=== PATIENT | male | born 1980 | race Caucasian/White ===

== ENCOUNTER 2016-07-21 09:11 | Emergency (ER) | payer SELFPAY ==
--- NOTE | 2016-07-21 09:41 | Emergency Department Record ---
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 pt states he was wearing a mask chief complaint: Eye pain, Eye redness Onset/Timin -: Days(s) Onset Description: Sudden Location: Right eye Place: Home If Injury: None Eye Symptoms: Blurry vision, Foreign body sensation, Pain Severity: Moderate Severity scale (1-10): 8 If Pain, Quality: Aching Consistency: Constant Associated Symptoms: None Treatments Prior to Arrival: OTC eye drops - Related Data Visual acuity (L) = 20/: 30 Visual acuity (R) = 20/: 30 With correction: No Previous Rx's Medication Instructions Recorded Hydrocodone/Acetaminophen [[place] 1 tab PO Q6H PRN #10 tab 07/21/16 5mg/325mg] Allergies Allergy/AdvReac Type Severity Reaction Status Date / Time tramadol Allergy Mild RASH Verified 07/21/16 09:21 bupropion HCl AdvReac Mild MESSES Verified 07/21/16 09:21 [From Wellbutrin] WITH HEART BEAT sertraline HCl [From Zoloft] AdvReac Mild SEXUAL Verified 07/21/16 09:21 SIDE EFFECTS Travel Screening - Travel/Exposure Within Last 30 Days Have you traveled within the last 30 days?: No Review of Systems Reviewed: No additional complaints except as noted below Constitutional: Reports: As per HPI. Denies: Chills, Fever, Malaise, Night sweats, Weakness, Weight change Eyes: Reports: As per HPI. Denies: Eye discharge, Eye pain, Photophobia, Vision change ENT: Reports: As per HPI. Denies: Congestion, Dental pain, Ear pain, Epistaxis , Hearing loss, Throat pain Respiratory: Reports: As per HPI. Denies: Cough, Dyspnea, Hemoptysis, Stridor, Wheezes Cardiovascular: Reports: As per HPI. Denies: Arrhythmia, Chest pain, Dyspnea on exertion, Edema, Murmurs, Orthopnea, Palpitations, Paroxysmal nocturnal dyspnea, Rheumatic Fever, Syncope Endocrine: Reports: As per HPI. Denies: Fatigue, Heat or cold intolerance, Polydipsia, Polyuria Gastrointestinal: Reports: As per HPI. Denies: Abdominal pain, Constipation, Diarrhea, Hematemesis, Hematochezia, Melena, Nausea, Vomiting Genitourinary: Reports: As per HPI. Denies: Dysuria, Frequency, Hematuria, Incontinence, Retention, Testicular pain, Testicular mass, Urgency Musculoskeletal: Reports: As per HPI. Denies: Arthralgia, Back pain, Gout, Joint swelling, Myalgia, Neck pain Skin: Reports: As per HPI. Denies: Bruising, Change in color, Change in hair/ nails, Lesions, Pruritus, Rash Neurological: Reports: As per HPI. Denies: Abnormal gait, Confusion, Headache, Numbness, Paresthesias, Seizure, Tingling, Tremors, Vertigo, Weakness Psychiatric: Reports: As per HPI. Denies: Anxiety, Auditory hallucinations, Depression, Homicidal thoughts, Suicidal thoughts, Visual hallucinations Hematological/Lymphatic: Reports: As per HPI. Denies: Anemia, Blood Clots, Easy bleeding, Easy bruising, Swollen glands Past Medical History - SOCIAL HISTORY Smoking Status: Never smoker Alcohol Use: None Drug Use: None - RESPIRATORY Hx Respiratory Disorders: No - CARDIOVASCULAR Hx Cardio Disorders: No - NEURO Hx Neuro Disorders: No - GI Hx GI Disorders: No - Hx Genitourinary Disorders: No - ENDOCRINE Hx Endocrine Disorders: No - MUSCULOSKELETAL Hx Musculoskeletal Disorders: Yes - PSYCH Hx Psych Problems: Yes Hx Anxiety: Yes Hx Depression: Yes - HEMATOLOGY/ONCOLOGY Hx Hematology/Oncology Disorders: No Family Medical History Any Significant Family History?: Yes Hx HTN: Father, Mother Physical Exam - General General Appearance: Alert, Oriented x3, Cooperative, Mild distress - Head Head exam: Normal inspection - Eye Eye exam: Normal appearance, PERRL, Conjunctival injection, Other (flourescein uptake. no fb) Pupils: Normal accommodation With correction: No Image of Eyes: 1 - stripe of corneal abrasion - ENT ENT exam: Normal exam, Mucous membranes moist, Normal external ear exam, Normal orophraynx, TM's normal bilaterally Ear exam: Normal external inspection. negative: External canal tenderness Nasal Exam: Normal inspection. negative: Discharge, Sinus tenderness Mouth exam: Normal external inspection, Tongue normal Teeth exam: Normal inspection. negative: Dental caries Throat exam: Normal inspection. negative: Tonsillar erythema, Tonsillar exudate - Neck Neck exam: Normal inspection, Full ROM. negative: Tenderness - Respiratory Respiratory exam: Normal lung sounds bilaterally. negative: Respiratory distress - Cardiovascular Cardiovascular Exam: Regular rate, Normal rhythm, Normal heart sounds - GI/Abdominal GI/Abdominal exam: Soft, Normal bowel sounds. negative: Tenderness - Rectal Rectal exam: Deferred - exam: Deferred - Extremities Extremities exam: Normal inspection, Full ROM, Normal capillary refill. negative: Tenderness - Back Back exam: Reports: Normal inspection, Full ROM. Denies: Muscle spasm, Rash noted, Tenderness - Neurological Neurological exam: Alert, CN II-XII intact, Normal gait, Oriented X3 - Psychiatric Psychiatric exam: Normal affect, Normal mood - Skin Skin exam: Dry, Intact, Normal color, Warm Course Vital Signs 07/21/16 09:13 Temperature 97.9 F Pulse Rate 53 L Respiratory 18 Rate Blood Pressure 127/76 Pulse Ox 99 Disposition Disposition: Discharge Clinical Impression: Welders' keratitis of right eye Disposition: Home, Self-Care Condition: (1) Good Instructions: Corneal Flash Hart (ED) Additional Instructions: follow up with ophthamologist tomorrow for a recheck. return sooner if worse. gentamycin drops 2 drops r eye 4 times a day for 5 days. Prescriptions: Hydrocodone/Acetaminophen [[place] 5mg/325mg] 1 tab PO Q6H PRN #10 tab PRN Reason: Pain - General Forms: Patient Portal Access
[2016-07-21] MEDS: HYDROCODONE/APAP 5/325MG TABLET PO ONE (10:05)
[2016-07-21] MEDS: GENTAMICIN SULFATE 0.3% OPTH 5 ML BTL OPTH ONE (10:05)
== END 2016-07-21 10:09 | disposition home or self-care (01) ==
LOC: ER 09:11
DX: H16.131 Photokeratitis, right eye (principal); W89.8XXA Exposure to other man-made visible and ultraviolet light, initial encounter; Y92.009 Unspecified place in unspecified non-institutional (private) residence as the place of occurrence of the external cause

== ENCOUNTER 2016-08-04 20:02 | Emergency (ER) | payer SELFPAY ==
[2016-08-04] MEDS ORDERED: CEPHALEXIN 500 MG CAPSULE PO STA (20:43)
--- NOTE | 2016-08-04 20:43 | Emergency Department Record ---
History of Present Illness - General Chief Complaint: Laceration(s) Stated Complaint: LACERATION LEFT HAND MIDDLE FINGER Time Seen by Provider: 08/04/16 20:33 Source: Patient Mode of Arrival: Ambulatory Limitations: No limitations - History of Present Illness Initial Commments: 36 yo male presents to ED with a CC of saw injury to the left middle digit just prior to arrival. Patient denies weakness to the finger or decreased ROM. Patient denies health problems at his baseline, and denies other injury. Last tetanus was approximately 5 months ago. Onset/Timin -: Hour(s) Extremity Location: Left: Hand Place: Home Context: Accidental, Power tool use Associated Symptoms: None Treatments Prior to Arrival: Bandage - [place] Coma Scale Eye Response: (4) Open spontaneously Motor Response: (6) Obeys commands Verbal Response: (5) Oriented Pj Total: 15 - Related Data Hx Tetanus Toxoid Vaccination: No Year of Tetanus Vaccination: 2017 Patient Tetanus UTD (within 5 yrs): Yes Previous Rx's Medication Instructions Recorded Cephalexin [Keflex] 500 mg PO QID #39 cap 08/04/16 Allergies Allergy/AdvReac Type Severity Reaction Status Date / Time tramadol Allergy Mild RASH Verified 07/21/16 09:21 bupropion HCl AdvReac Mild MESSES Verified 07/21/16 09:21 [From Wellbutrin] WITH HEART BEAT sertraline HCl [From Zoloft] AdvReac Mild SEXUAL Verified 07/21/16 09:21 SIDE EFFECTS acetaminophen [From [place]] AdvReac DIZZINESS Verified 08/04/16 20:21 hydrocodone [From [place]] AdvReac DIZZINESS Verified 08/04/16 20:21 Travel Screening - Travel/Exposure Within Last 30 Days Have you traveled within the last 30 days?: No Review of Systems Constitutional: Denies: Chills, Fever, Malaise, Night sweats Eyes: Denies: Eye discharge, Eye pain ENT: Denies: Congestion, Ear pain, Epistaxis Respiratory: Denies: Cough, Dyspnea Cardiovascular: Denies: Chest pain, Dyspnea on exertion Endocrine: Denies: Fatigue, Heat or cold intolerance Gastrointestinal: Denies: Abdominal pain, Nausea, Vomiting Genitourinary: Denies: Incontinence, Retention Musculoskeletal: Reports: Arthralgia. Denies: Back pain, Gout, Joint swelling Skin: Denies: Bruising, Change in color Neurological: Denies: Abnormal gait, Confusion, Headache, Seizure Psychiatric: Denies: Anxiety Hematological/Lymphatic: Denies: Anemia, Blood Clots Past Medical History - SOCIAL HISTORY Smoking Status: Never smoker Alcohol Use: None Drug Use: None - RESPIRATORY Hx Respiratory Disorders: No - CARDIOVASCULAR Hx Cardio Disorders: No - NEURO Hx Neuro Disorders: No - GI Hx GI Disorders: No - Hx Genitourinary Disorders: No - ENDOCRINE Hx Endocrine Disorders: No - MUSCULOSKELETAL Hx Musculoskeletal Disorders: Yes - PSYCH Hx Psych Problems: Yes Hx Anxiety: Yes Hx Depression: Yes - HEMATOLOGY/ONCOLOGY Hx Hematology/Oncology Disorders: No Family Medical History Any Significant Family History?: Yes Hx HTN: Father, Mother Physical Exam - General General Appearance: Alert, Oriented x3, Cooperative, No acute distress Limitations: No limitations - Head Head exam: Atraumatic, Normocephalic, Normal inspection Head exam detail: negative: Abrasion, Contusion, Rucker's sign, General tenderness, Hematoma, Laceration - Eye Eye exam: Normal appearance. negative: Conjunctival injection, Periorbital swelling, Periorbital tenderness, Scleral icterus - ENT Ear exam: negative: Auricular hematoma, Auricular trauma Nasal Exam: negative: Active bleeding, Discharge, Dried blood, Foreign body Mouth exam: negative: Drooling, Laceration, Muffled voice, Tongue elevation - Neck Neck exam: Normal inspection. negative: Meningismus, Tenderness - Respiratory Respiratory exam: Normal lung sounds bilaterally. negative: Rales, Respiratory distress, Rhonchi, Stridor, Wheezes - Cardiovascular Cardiovascular Exam: Regular rate, Normal rhythm, Normal heart sounds - GI/Abdominal GI/Abdominal exam: Soft. negative: Rebound, Rigid, Tenderness - Rectal Rectal exam: Deferred - exam: Deferred - Extremities Extremities exam: Tenderness, Other (1.5 cm superficial laceration overlying the middle phalanx medially of the left middle digit, tendon is intact as flexion at the isolated DIP is intact.). negative: Calf tenderness, Pedal edema - Back Back exam: Denies: CVA tenderness (R), CVA tenderness (L) - Neurological Neurological exam: Alert, Normal gait, Oriented X3 - Psychiatric Psychiatric exam: Normal affect, Normal mood - Skin Skin exam: Normal color. negative: Abrasion Type of lesion: negative: abrasion Course Vital Signs 08/04/16 20:17 Temperature 98.9 F Pulse Rate [ 66 Pulse Ox Probe] Respiratory 18 Rate Blood Pressure 121/59 [Left Arm] Pulse Ox 96 - Reevaluation(s) Reevaluation #1: 08/04/16 21:12 Procedure Note: Wound was thoroughly cleaned and prepped in sterile fashion, no FBs identified on examination. Wound was anesthetized with 1.0 mL 0.5% sensorcaine with good anesthesia. Wound was then visualized under bloodless field, no FBs identified. Wound was closed with Prolene 4-0, #3 sutures. Patient tolerated the procedure well without complications. Reevaluation #2: 08/04/16 21:27 Left hand/Middle digit: Possible radio-opaque FBs present (very small) vs. possible fracture fragments from injury Patient was made aware of these fragments, they are too small and deep to be seen on examination. Keflex was initiated from the ED as well, and patient was instructed to return to ED for suture removal in 10-14 days. Disposition Disposition: Discharge Clinical Impression: Finger laceration Qualifiers: Encounter type: initial encounter Qualified Code(s): S61.219A - Laceration without foreign body of unspecified finger without damage to nail, initial encounter Disposition: Home, Self-Care Condition: (2) Stable Instructions: Laceration (ED) Additional Instructions: Return to ED if your symptoms worsen or if you have any concerns. Sutures our in 10-14 days. Keflex as directed. Follow-up with your family doctor in 1 week as directed. Prescriptions: Cephalexin [Keflex] 500 mg PO QID #39 cap Forms: Patient Portal Access Time of Disposition: 20:43
== END 2016-08-04 21:32 | disposition home or self-care (01) ==
LOC: ER 20:02
DX: S61.213A Laceration without foreign body of left middle finger without damage to nail, initial encounter (principal); W31.2XXA Contact with powered woodworking and forming machines, initial encounter; Y92.009 Unspecified place in unspecified non-institutional (private) residence as the place of occurrence of the external cause
CPT/HCPCS: 12001; 73140; 99283; 99284

== ENCOUNTER 2017-08-08 21:58 | Emergency (ER) | payer MEDICAID ==
[2017-08-08] MEDS ORDERED: NAPROXEN 250 MG TABLET PO ONE (22:35)
[2017-08-08] MEDS ORDERED: PENICILLIN V POTASSIUM 250 MG TAB PO ONE (22:35)
--- NOTE | 2017-08-08 22:37 | Emergency Department Record ---
History of Present Illness - General Chief complaint: Toothache Stated complaint: RT SIDE MOUTH PAIN Time Seen by Provider: 08/08/17 22:35 Source: Patient Mode of Arrival: Ambulatory Limitations: No limitations - History of Present Illness Initial comments: 37 yo male presents to ED for evaluation of dental pain for the past 3-4 days, reports taking Tylenol and Ibuprofen for his pain symptoms without significant improvement. Patient denies fevers, chills, or recent illness. Patient denies sore throat symptoms as well. Patient also denies that he sees a dentist regularly. MD complaint: Tooth pain Onset/Timin -: Days(s) Severity scale (1-10): 8 Quality: Sharp, Stabbing Consistency: Intermittent, Getting worse Improves with: Other Worsens with: Eating Context- Dental: History of dental caries - Related Data Previous Rx's Medication Instructions Recorded Naproxen [Naprosyn] 500 mg PO Q12H #30 tab. 08/08/17 Penicillin V Potassium 500 mg PO QID #27 tablet 08/08/17 Allergies Allergy/AdvReac Type Severity Reaction Status Date / Time tramadol Allergy Mild RASH Verified 07/21/16 09:21 bupropion HCl AdvReac Mild MESSES Verified 07/21/16 09:21 [From Wellbutrin] WITH HEART BEAT sertraline HCl [From Zoloft] AdvReac Mild SEXUAL Verified 07/21/16 09:21 SIDE EFFECTS hydrocodone [From [place]] AdvReac DIZZINESS Verified 08/04/16 20:21 Travel Screening - Travel/Exposure Within Last 30 Days Have you traveled within the last 30 days?: No - Travel Symptoms Symptom Screening: None Review of Systems Constitutional: Denies: Chills, Fever, Malaise, Night sweats Eyes: Denies: Eye discharge, Eye pain ENT: Reports: Dental pain. Denies: Congestion, Ear pain Respiratory: Denies: Cough, Dyspnea Cardiovascular: Denies: Chest pain, Dyspnea on exertion Endocrine: Denies: Fatigue, Heat or cold intolerance Gastrointestinal: Denies: Abdominal pain, Nausea, Vomiting Genitourinary: Denies: Incontinence, Retention Musculoskeletal: Denies: Arthralgia, Back pain, Gout, Joint swelling Skin: Denies: Bruising, Change in color Neurological: Denies: Abnormal gait, Confusion, Headache, Seizure Psychiatric: Denies: Anxiety Hematological/Lymphatic: Denies: Anemia, Blood Clots Past Medical History - SOCIAL HISTORY Smoking Status: Never smoker - RESPIRATORY Hx Respiratory Disorders: No - CARDIOVASCULAR Hx Cardio Disorders: No - NEURO Hx Neuro Disorders: No - GI Hx GI Disorders: No - Hx Genitourinary Disorders: No - ENDOCRINE Hx Endocrine Disorders: No - MUSCULOSKELETAL Hx Musculoskeletal Disorders: Yes - PSYCH Hx Psych Problems: Yes Hx Anxiety: Yes Hx Depression: Yes - HEMATOLOGY/ONCOLOGY Hx Hematology/Oncology Disorders: No Family Medical History Any Significant Family History?: Yes Hx HTN: Father, Mother Physical Exam - General General Appearance: Alert, Oriented x3, Cooperative, Mild distress Limitations: No limitations - Head Head exam: Atraumatic, Normocephalic, Normal inspection Head exam detail: negative: Abrasion, Contusion, Rucker's sign, General tenderness, Hematoma, Laceration - Eye Eye exam: Normal appearance. negative: Conjunctival injection, Periorbital swelling, Periorbital tenderness, Scleral icterus - ENT ENT exam: Normal orophraynx Ear exam: negative: Auricular hematoma, Auricular trauma Nasal Exam: negative: Active bleeding, Discharge, Foreign body Mouth exam: negative: Drooling, Laceration, Tongue elevation Teeth exam: Dental caries, Other (Widespread dental caries are present on examination) Throat exam: negative: Tonsillar erythema, R peritonsillar mass, L peritonsillar mass Image of Mouth/Teeth: 1 - Moderate-severe dental caries are present, no gingival abscess is present - Neck Neck exam: Normal inspection. negative: Meningismus, Tenderness - Respiratory Respiratory exam: Normal lung sounds bilaterally. negative: Rales, Respiratory distress, Rhonchi, Stridor - Cardiovascular Cardiovascular Exam: Regular rate, Normal rhythm, Normal heart sounds - GI/Abdominal GI/Abdominal exam: Soft. negative: Rebound, Rigid, Tenderness - Rectal Rectal exam: Deferred - exam: Deferred - Extremities Extremities exam: Normal inspection. negative: Calf tenderness, Pedal edema, Tenderness - Back Back exam: Denies: CVA tenderness (R), CVA tenderness (L) - Neurological Neurological exam: Alert, Normal gait, Oriented X3 - Psychiatric Psychiatric exam: Normal affect, Normal mood - Skin Skin exam: Normal color. negative: Abrasion Type of lesion: negative: abrasion Course Vital Signs 08/08/17 22:25 Temperature 98.5 F Pulse Rate [ 61 Pulse Ox Probe] Respiratory 18 Rate Blood Pressure 119/68 [Left Arm] Pulse Ox 98 - Reevaluation(s) Reevaluation #1: 08/08/17 22:44 Patient was seen and examined, symptoms appear consistent with dental caries involving tooth #31. Will initiate treatment with Pen VK and Naprosyn with instructions for dental follow-up in 1-3 days as directed. Disposition Disposition: Discharge Clinical Impression: Dental caries Disposition: Home, Self-Care Condition: (2) Stable Instructions: Dental Abscess (ED) Additional Instructions: Return to ED if your symptoms worsen or if you have any concerns. Naprosyn and Pen VK as directed. Call tomorrow morning for a dentist appointment in 1-3 days as directed. Prescriptions: Naproxen [Naprosyn] 500 mg PO Q12H #30 tab. Penicillin V Potassium 500 mg PO QID #27 tablet Forms: Patient Portal Access Time of Disposition: 22:37 Quality - Quality Measures Quality Measures: N/A - Blood Pressure Screening Does Patient Have Any of the Following: No Blood Pressure Classification: Normal BP Reading Systolic Measurement: 119 Diastolic Measurement: 68 Screening for High Blood Pressure: < Normal BP, F/U Not Required > [[id number]]
== END 2017-08-08 23:00 | disposition home or self-care (01) ==
LOC: ER 21:58
DX: K02.9 Dental caries, unspecified (principal)
CPT/HCPCS: 99282